=== PATIENT | female | born 1985 | race Caucasian/White ===

== ENCOUNTER 2018-01-08 14:00 | Emergency (ER) | payer OTHER ==
[~2018-01-08] VITALS: Ht 152.4 cm; Wt 61.2 kg
== END 2018-01-08 22:51 | disposition home or self-care (01) ==
LOC: ER 14:00
DX: O26.891 Other specified pregnancy related conditions, first trimester (principal); K29.70 Gastritis, unspecified, without bleeding; Z34.81 Encounter for supervision of other normal pregnancy, first trimester